=== PATIENT | male | born 1990 | race African-American/Black ===

== ENCOUNTER 2020-06-28 19:38 | Emergency (ER) | payer SELFPAY ==
[~2020-06-28] VITALS: Ht 185.4 cm; Wt 90.7 kg
[2020-06-28] MEDS ORDERED: ACETAMINOPHEN 325 MG TAB PO ONE (20:30)
[2020-06-28 20:31] VITALS: BP 144/82
== END 2020-06-28 23:28 | disposition home or self-care (01) ==
LOC: EDBD 19:38 → ER 19:40
DX: S83.8X1A Sprain of other specified parts of right knee, initial encounter (principal); M62.838 Other muscle spasm; M51.26 Other intervertebral disc displacement, lumbar region; F17.210 Nicotine dependence, cigarettes, uncomplicated; V49.49XA Driver injured in collision with other motor vehicles in traffic accident, initial encounter; Y93.89 Activity, other specified; Y92.488 Other paved roadways as the place of occurrence of the external cause; Y99.8 Other external cause status
CPT/HCPCS: 72125; 72131; 73560